=== PATIENT | female | born 1960 | race African-American/Black ===

== ENCOUNTER 2019-06-29 14:42 | Emergency (ER) | payer BC ==
[~2019-06-29] VITALS: Ht 160 cm; Wt 81.7 kg
[~2019-06-29 14:42] MED LIST: BUMETANIDE0.5 MG PO; COZAAR 25 MG TA25 M1 PO; FLOMAX0.4 MG PO; HYDROCODONE-AP1 EAC6 PO; KEFLEX500 MG PO; METFORMIN HCL500 MG PO; MOBIC15 MG PO; NORCO 5-325 TA1 EACH PO; ONDANSETRON HCL4 M2 PO; PAXIL10 MG PO
[2019-06-29 15:17] LABS: URINE BILIRUBIN NEGATIVE (Negative); URINE BLOOD TRACE (Negative); URINE CLARITY CLEAR; URINE COLOR YELLOW; URINE GLUCOSE-RANDOM* NEGATIVE (Negative); URINE KETONES NEGATIVE (Negative); URINE LEUKOCYTES-REFLEX NEGATIVE (Negative); URINE NITRITE-REFLEX NEGATIVE (Negative); URINE PROTEIN (DIPSTICK) NEGATIVE (Negative); URINE SPECIFIC GRAVITY <= 1.005 (1.005-1.035); URINE UROBILINOGEN 0.2 E.U./dl (0.2-1.0)
[2019-06-29 15:32] LABS: ABSOLUTE NEUTROPHILS 5.9 thou/uL (1.4-8.2); BASOPHILS 1.2 % (0.0-2.0); HEMATOCRIT 39.5 % (37.0-47.0); LYMPHOCYTES 23.2 % (24.0-44.0); MCHC 32.9 g/dL (28.0-37.0); MCV 91.3 fL (80.0-100.0); MONOCYTES 5.7 % (1.0-8.0); PLATELET COUNT 282 thou/uL (150-400); POLYS 68.9 % (36.0-66.0); RBC 4.32 mil/uL (4.20-5.00); RDW 14.7 % (10.5-14.5); WBC 8.6 thou/uL (4.0-11.0)
[2019-06-29 15:40] LABS: CALCIUM 9.5 mg/dL (8.5-10.1); CREATININE 1.1 mg/dL (0.6-1.0); POTASSIUM 5.2 mmol/L (3.5-5.1)
[2019-06-29 15:47] LABS: ALBUMIN 3.8 g/dL (3.4-5.0); TOTAL BILIRUBIN 0.3 mg/dL (<0.1-1.0); TOTAL PROTEIN 8.2 g/dL (6.4-8.2)
[2019-06-29] MEDS ORDERED: ZOFRAN ODT4 MG DISSOLVE (17:41)
[2019-06-29] MEDS ORDERED: FLOMAX0.4 MG PO (17:41)
[2019-06-29] MEDS ORDERED: NORCO 5-325 TA1 EAC1 PO (17:41)
[2019-06-29 17:50] VITALS: BP 138/86
== END 2019-06-29 18:05 | disposition home or self-care (01) ==
LOC: ER 14:42
PROVIDERS: Physician Assistant
DX: N20.1 Calculus of ureter (principal); I10 Essential (primary) hypertension; Z88.1 Allergy status to other antibiotic agents

== ENCOUNTER → 2021-05-17 | Outpatient (CLI) | payer BC ==
[~2021-05-17] MED LIST changes: +NORCO 5-325 TA1 EAC1 PO; +ZOFRAN ODT4 MG DISSOLVE
== END ==
LOC: ULTRA 13:30
PROVIDERS: ATTEND Obstetrics & Gynecology
DX: D25.9 Leiomyoma of uterus, unspecified (principal); R93.89 Abnormal findings on diagnostic imaging of other specified body structures